=== PATIENT | female | born 1930 | race Caucasian/White ===

== ENCOUNTER 2021-12-13 13:49 | Inpatient (IN) ==
[2021-12-13] MEDS ORDERED: Perflutren Lipid Microsphere 1.3 ML in 0.9 % Sodium Chloride 8.7 ML IVP PRN (16:46)
[2021-12-13] MEDS ORDERED: Naloxone 0.4 MG/ML INJ IVP PRN (16:46)
[2021-12-13] MEDS ORDERED: Nitroglycerin 0.4 MG TAB.SUBL SL PRN (16:46)
[2021-12-13] MEDS ORDERED: Morphine Sulfate 2 MG/ML SYRINGE IVP PRN (16:46)
[2021-12-13] MEDS ORDERED: Acetaminophen 325 MG TABLET PO PRN (16:46)
[2021-12-13] MEDS ORDERED: *HR* Heparin 5,000 UNIT/ML VIAL IVP PRN (17:22)
[2021-12-13] MEDS ORDERED: *HR* Heparin 5,000 UNIT/ML VIAL IVP ONE (17:22)
[2021-12-13 18:01] LABS: Hematocrit 31.1 % (35.3-44.9); Hemoglobin 10.1 g/dL (11.5-15.4); Immature Platelets 13.3 % (1.1-6.1); Mean Corpuscular HGB Conc 32.5 g/dL (31.6-35.5); Mean Corpuscular Hemoglobin 32.4 pg (28.0-33.3); Mean Corpuscular Volume 99.7 fL (83.0-100.0); Mean Platelet Volume 12.7 fL (9.4-12.4); Red Blood Count 3.12 M/mcL (3.82-4.97); Red Cell Distribution Width 20.2 % (11.5-14.5)
[2021-12-13 18:06] LABS: White Blood Count 55.8 K/mcL (4.3-11.1)
[2021-12-13 18:07] LABS: Heparin anti-factor XA UFH < 0.04 IU/mL (0.30-0.70); INR 1.6; Prothrombin Time 17.6 Seconds (9.4-12.1)
[2021-12-13] MEDS: Doxycycline 100 MG in 0.9 % Sodium Chloride Mini Bag 100 ML IVPB SCH (18:07)
[2021-12-13] MEDS: Heparin 25,000UNIT/250ML 1/2NS 25,000 UNIT/250 ML IV.SOLN IVC SCH (18:08)
[2021-12-13] MEDS: cefTRIAXone 1,000 MG in 0.9 % Sodium Chloride 10 ML IVP SCH (18:11)
[2021-12-13 18:19] LABS: ABG Base Excess -3 mEq/L (-2 to 3); ABG HCO3 21 mEq/L (21-27); ABG Oxygen Saturation 95 % (95-98); ABG PCO2 31 mmHg (35-45); ABG PH 7.43 pH Units (7.32-7.45); ABG PO2 70 mmHg (85-104); ABG TCO2 22 mEq/L (20-26)
[2021-12-13 19:40] LABS: Influenza A PCR Negative (Negative); Influenza B PCR Negative (Negative); Resp. Syncytial Virus PCR Negative (Negative)
[2021-12-13 19:41] LABS: SARS-CoV-2 by PCR (In House) Negative (Negative)
[2021-12-14 01:37] LABS: Calcium 8.6 mg/dL (8.6-10.3); Potassium 4.4 mEq/L (3.5-5.1)
[2021-12-14 01:49] LABS: Troponin I 11.83 ng/mL (< 0.04)
[2021-12-14 02:27] LABS: Basophils % 0.3 %; Hemoglobin 10.3 g/dL (11.5-15.4); Immature Granulocytes % 2.8 % (0-4); Mean Corpuscular Hemoglobin 32.9 pg (28.0-33.3); Nucleated Red Blood Cells 0.2 /100 WBC (0); Red Blood Count 3.13 M/mcL (3.82-4.97); Red Cell Distribution Width 20.5 % (11.5-14.5)
[2021-12-14 02:29] LABS: Basophils # 0.1 K/mcL (0.0-0.2); Hematocrit 31.2 % (35.3-44.9); Immature Platelets 13.1 % (1.1-6.1); Lymphocytes # 1.5 K/mcL (0.6-4.6); Lymphocytes % 3.1 %; Mean Corpuscular Volume 99.7 fL (83.0-100.0); Mean Platelet Volume 13.4 fL (9.4-12.4); Monocytes # 3.9 K/mcL (0.0-1.3); Monocytes % 8.1 %; Neutrophils # 41.2 K/mcL (1.6-8.9); Platelet Count 125 K/mcL (140-400); Segmented Neutrophils % 85.7 %
[2021-12-14 03:05] LABS: Bacteria,Urine Moderate per hpf (None-Few); Bilirubin,Urine Negative (Negative); Blood,Urine Negative (Negative); Clarity,Urine Clear (Clear); Color,Urine Yellow (Yellow); Glucose,Urine (UA) Normal (Normal); Hyaline Casts,Urine Many per lpf (None Seen); Ketones,Urine Negative (Negative); Leukocyte Esterase,Urine Negative (Negative); Mucus,Urine Few per lpf (None-Few); Nitrite,Urine Negative (Negative); PH,Urine 5.5 pH Units (5.0-8.0); Protein,Urine 30 mg/dL (Neg-Trace); RBC,Urine 0-3 per hpf (0-3); Specific Gravity,Urine 1.018 (1.010-1.025); Squamous Epithelial Cell,Urine Few per hpf (None-Few); Urobilinogen,Urine Normal (Normal)
[2021-12-14 03:08] LABS: White Blood Count 48.1 K/mcL (4.3-11.1)
[2021-12-14 03:09] LABS: Anisocytosis 2+ (Not Present); Platelet Estimate Slight Decrease (Normal); Poikilocytosis 1+ (Not Present); Tear Drop Cells 1+ (Not Present)
[2021-12-14 03:10] LABS: Ovalocytes 1+ (Not Present)
[2021-12-14 03:19] LABS: Estimated Average Glucose 148 mg/dl; Hemoglobin A1C 6.8 %
[2021-12-14] MEDS: Doxycycline 100 MG in 0.9 % Sodium Chloride Mini Bag 100 ML IVPB SCH ×2 (05:25→16:39)
[2021-12-14] MEDS: DilTIAZem CD (24hr) 180 MG CAP.ER.24H PO SCH (10:30)
[2021-12-14] MEDS: Aspirin Enteric Coated 81 MG Tablet PO SCH (10:31)
[2021-12-14] MEDS: cefTRIAXone 1,000 MG in 0.9 % Sodium Chloride 10 ML IVP SCH (10:31)
[2021-12-14] MEDS: Ondansetron 4 MG/2 ML VIAL IVP PRN ×2 (10:53→21:27)
[2021-12-14] MEDS: *HR* Heparin 5,000 UNIT/ML VIAL IVP PRN ×2 (12:36→21:15)
[2021-12-14 16:36] LABS: Chol/HDL Ratio 3.5 (0-4.9); Magnesium 2.7 mg/dL (1.6-2.6)
[2021-12-14 16:50] LABS: Thyroid Stimulating Hormone 0.483 mcIU/mL (0.340-5.600)
[2021-12-14 16:51] LABS: Thyroid Stimulating Hormone 0.501 mcIU/mL (0.340-5.600)
[2021-12-14] MEDS: Heparin 25,000UNIT/250ML 1/2NS 25,000 UNIT/250 ML IV.SOLN IVC SCH (17:14)
[2021-12-15] MEDS: Albumin 25% 25gram/100mL 25 GM/100 ML IV.SOLN IVPB SCH ×3 (00:43→16:16)
[2021-12-15] MEDS: Doxycycline 100 MG in 0.9 % Sodium Chloride Mini Bag 100 ML IVPB SCH ×2 (07:07→17:56)
[2021-12-15] MEDS: Aspirin Enteric Coated 81 MG Tablet PO SCH (09:47)
[2021-12-15] MEDS: DilTIAZem CD (24hr) 180 MG CAP.ER.24H PO SCH (09:48)
[2021-12-15] MEDS: cefTRIAXone 1,000 MG in 0.9 % Sodium Chloride 10 ML IVP SCH (09:48)
[2021-12-15 10:49] LABS: Hematocrit 28.1 % (35.3-44.9); Hemoglobin 9.1 g/dL (11.5-15.4); Mean Corpuscular HGB Conc 32.4 g/dL (31.6-35.5); Mean Corpuscular Hemoglobin 32.5 pg (28.0-33.3); Mean Corpuscular Volume 100.4 fL (83.0-100.0); Mean Platelet Volume 12.8 fL (9.4-12.4); Nucleated Red Blood Cells 0.7 /100 WBC (0); Platelet Count 164 K/mcL (140-400); Red Cell Distribution Width 20.5 % (11.5-14.5)
[2021-12-15 10:50] LABS: White Blood Count 15.3 K/mcL (4.3-11.1)
[2021-12-15 11:06] LABS: Complement C3 100 mg/dL (87-200)
[2021-12-15 11:08] LABS: Calcium 8.7 mg/dL (8.6-10.3); Magnesium 2.9 mg/dL (1.6-2.6); Potassium 3.9 mEq/L (3.5-5.1)
[2021-12-15 12:17] LABS: Lymphocytes # 1.5 K/mcL (0.6-4.6); Monocytes # 0.3 K/mcL (0.0-1.3); Neutrophils # 12.9 K/mcL (1.6-8.9); Platelet Estimate Normal (Normal)
[2021-12-15 12:18] LABS: Anisocytosis 1+ (Not Present); Poikilocytosis 1+ (Not Present)
[2021-12-15] MEDS: *HR* Heparin 5,000 UNIT/ML VIAL IVP PRN (12:25)
[2021-12-15] MEDS ORDERED: Heparin 25,000UNIT/250ML 1/2NS 25,000 UNIT/250 ML IV.SOLN IVC SCH (12:30)
[2021-12-15] MEDS ORDERED: *HR* Heparin 5,000 UNIT/ML VIAL IVP PRN ×2 (12:58)
[2021-12-15] MEDS: Ondansetron 4 MG/2 ML VIAL IVP PRN ×2 (14:00→21:50)
[2021-12-15 17:19] LABS: Protein/Creatinine Ratio,Urine 0.78 mg/mg (0.00-0.20); Sodium, Urine 12.1 mEq/L
[2021-12-15] MEDS: *HR* Heparin 5,000 UNIT/ML VIAL SQ SCH (17:55)
[2021-12-16] MEDS: Albumin 25% 25gram/100mL 25 GM/100 ML IV.SOLN IVPB SCH ×4 (00:40→23:53)
[2021-12-16] MEDS: Doxycycline 100 MG in 0.9 % Sodium Chloride Mini Bag 100 ML IVPB SCH ×2 (06:22→18:50)
[2021-12-16] MEDS: *HR* Heparin 5,000 UNIT/ML VIAL SQ SCH ×3 (06:23→21:52)
[2021-12-16] MEDS: Aspirin Enteric Coated 81 MG Tablet PO SCH (10:05)
[2021-12-16] MEDS: DilTIAZem CD (24hr) 180 MG CAP.ER.24H PO SCH (10:05)
[2021-12-16] MEDS: cefTRIAXone 1,000 MG in 0.9 % Sodium Chloride 10 ML IVP SCH (10:07)
[2021-12-16] MEDS: Ondansetron 4 MG/2 ML VIAL IVP PRN (12:01)
[2021-12-16 12:15] LABS: Mean Corpuscular HGB Conc 33.2 g/dL (31.6-35.5); Nucleated Red Blood Cells 2.1 /100 WBC (0)
[2021-12-16 12:17] LABS: Hematocrit 25.9 % (35.3-44.9); Hemoglobin 8.6 g/dL (11.5-15.4); Immature Platelets 15.7 % (1.1-6.1); Mean Corpuscular Hemoglobin 32.7 pg (28.0-33.3); Mean Corpuscular Volume 98.5 fL (83.0-100.0); Platelet Count 121 K/mcL (140-400); Red Blood Count 2.63 M/mcL (3.82-4.97); Red Cell Distribution Width 20.2 % (11.5-14.5); White Blood Count 12.3 K/mcL (4.3-11.1)
[2021-12-16 12:36] LABS: Albumin 4.6 g/dL (3.5-5.7); Albumin/Globulin Ratio 3.1 (1.1-2.2); Bilirubin,Total 1.1 mg/dL (0.3-1.0); Calcium 8.2 mg/dL (8.6-10.3); Globulin 1.5 g/dL (2.4-3.5); Potassium 3.6 mEq/L (3.5-5.1); Total Protein 6.1 g/dL (6.4-8.9)
[2021-12-16 13:00] LABS: Monocytes # 2.1 K/mcL (0.0-1.3); Neutrophils # 7.5 K/mcL (1.6-8.9)
[2021-12-16 13:01] LABS: Anisocytosis 2+ (Not Present); Ovalocytes 1+ (Not Present); Platelet Estimate Slight Decrease (Normal); Toxic Vacuolation Present (Not Present)
[2021-12-16 13:02] LABS: Acanthocytes 1+ (Not Present)
[2021-12-16] MEDS ORDERED: Ipratropium/Albuterol Neb 3 ML IH PRN (15:44)
[2021-12-16] MEDS: predniSONE 5 MG TABLET PO SCH (16:05)
[2021-12-16 17:47] LABS: Procalcitonin 2.18 ng/mL (0.00-0.15)
[2021-12-16] MEDS: Ipratropium/Albuterol Neb 3 ML IH SCH ×2 (18:16→21:10)
[2021-12-17] MEDS: Ipratropium/Albuterol Neb 3 ML IH SCH ×4 (04:28→22:08)
[2021-12-17] MEDS: Doxycycline 100 MG in 0.9 % Sodium Chloride Mini Bag 100 ML IVPB SCH ×2 (05:35→18:18)
[2021-12-17 06:16] LABS: Hematocrit 27.2 % (35.3-44.9); Mean Corpuscular HGB Conc 33.1 g/dL (31.6-35.5); Mean Corpuscular Hemoglobin 32.3 pg (28.0-33.3); Mean Corpuscular Volume 97.5 fL (83.0-100.0); Nucleated Red Blood Cells 2.3 /100 WBC (0); Red Blood Count 2.79 M/mcL (3.82-4.97); Red Cell Distribution Width 20.4 % (11.5-14.5); White Blood Count 17.9 K/mcL (4.3-11.1)
[2021-12-17 06:29] LABS: Platelet Count 99 K/mcL (140-400)
[2021-12-17 06:40] LABS: Ovalocytes 1+ (Not Present)
[2021-12-17 06:41] LABS: Anisocytosis 2+ (Not Present); Basophils # 0.4 K/mcL (0.0-0.2); Lymphocytes # 4.3 K/mcL (0.6-4.6); Monocytes # 2.2 K/mcL (0.0-1.3); Neutrophils # 10.7 K/mcL (1.6-8.9); Platelet Estimate Slight Decrease (Normal); Poikilocytosis 1+ (Not Present)
[2021-12-17 06:58] LABS: % Iron Saturation 80 % (15-50); Ferritin > 1500 ng/mL (10-120); Iron 122 mcg/dL (50-170); Transferrin 109 mg/dL (203-362)
[2021-12-17] MEDS: Aspirin Enteric Coated 81 MG Tablet PO SCH (08:32)
[2021-12-17] MEDS: predniSONE 5 MG TABLET PO SCH (08:32)
[2021-12-17] MEDS: Ondansetron 4 MG/2 ML VIAL IVP PRN ×2 (08:32→18:18)
[2021-12-17] MEDS: Albumin 25% 25gram/100mL 25 GM/100 ML IV.SOLN IVPB SCH ×2 (08:33→18:18)
[2021-12-17] MEDS: cefTRIAXone 1,000 MG in 0.9 % Sodium Chloride 10 ML IVP SCH (08:33)
[2021-12-17 11:54] LABS: Folate 11.8 ng/mL (3.0-16.0)
[2021-12-17 12:05] LABS: Vitamin B12 > 1500 pg/mL (250-1100)
[2021-12-17 15:32] LABS: Alanine Aminotransferase 1142 Units/L (7-52); Albumin 4.8 g/dL (3.5-5.7); Albumin/Globulin Ratio 3.7 (1.1-2.2); Alkaline Phosphatase 55 Units/L (34-104); Aspartate Amino Transferase 1558 Units/L (13-39); BUN/Creatinine Ratio 47 (6-26); Bilirubin,Total 1.6 mg/dL (0.3-1.0); Blood Urea Nitrogen 56 mg/dL (8-23); Calcium 8.7 mg/dL (8.6-10.3); Carbon Dioxide 19 mEq/L (23-29); Chloride 101 mEq/L (98-107); Globulin 1.3 g/dL (2.4-3.5); Glucose 110 mg/dL (70-105); Osmolality,Calculated 290 (280-300); Potassium 4.2 mEq/L (3.5-5.1); Sodium 132 mEq/L (136-145); Total Protein 6.1 g/dL (6.4-8.9); eGFR For African Americans 52 (> 60); eGFR For Non-African Americans 43 (> 60)
[2021-12-17 21:19] LABS: INR 2.3; Prothrombin Time 25.4 Seconds (9.4-12.1)
[2021-12-17] MEDS ORDERED: *HR* Promethazine 25 MG/ML VIAL IM ONE (22:33)
[2021-12-18] MEDS: Albumin 25% 25gram/100mL 25 GM/100 ML IV.SOLN IVPB SCH (00:22)
[2021-12-18] MEDS: Ipratropium/Albuterol Neb 3 ML IH SCH ×4 (04:13→22:18)
[2021-12-18] MEDS: Doxycycline 100 MG in 0.9 % Sodium Chloride Mini Bag 100 ML IVPB SCH (05:32)
[2021-12-18 07:15] LABS: Hemoglobin 8.6 g/dL (11.5-15.4); Mean Corpuscular Volume 99.6 fL (83.0-100.0); Red Cell Distribution Width 20.4 % (11.5-14.5)
[2021-12-18 07:17] LABS: Hematocrit 26.4 % (35.3-44.9); Immature Platelets 22.5 % (1.1-6.1); Mean Corpuscular HGB Conc 32.6 g/dL (31.6-35.5); Mean Corpuscular Hemoglobin 32.5 pg (28.0-33.3); Nucleated Red Blood Cells 1.7 /100 WBC (0); Red Blood Count 2.65 M/mcL (3.82-4.97); White Blood Count 25.5 K/mcL (4.3-11.1)
[2021-12-18 07:22] LABS: Platelet Count 84 K/mcL (140-400)
[2021-12-18 07:59] LABS: Hepatitis B Surface Antigen Nonreactive (Nonreactive)
[2021-12-18 08:05] LABS: Albumin 5.4 g/dL (3.5-5.7); Albumin/Globulin Ratio 4.9 (1.1-2.2); Bilirubin,Total 2.1 mg/dL (0.3-1.0); Calcium 9.3 mg/dL (8.6-10.3); Globulin 1.1 g/dL (2.4-3.5); Total Protein 6.5 g/dL (6.4-8.9)
[2021-12-18] MEDS: Sennosides/Docusate Sodium TABLET PO SCH ×2 (08:24→20:21)
[2021-12-18] MEDS: cefTRIAXone 1,000 MG in 0.9 % Sodium Chloride 10 ML IVP SCH (08:24)
[2021-12-18] MEDS: polyethylene glycoL 3350 17 GM POWD.PACK PO SCH (08:24)
[2021-12-18 08:27] LABS: Hepatitis B Core IgM Nonreactive (Nonreactive)
[2021-12-18] MEDS: predniSONE 5 MG TABLET PO SCH (08:28)
[2021-12-18] MEDS: Aspirin Enteric Coated 81 MG Tablet PO SCH (08:28)
[2021-12-18 08:29] LABS: Hepatitis A Antibody IgM Nonreactive (Nonreactive); Hepatitis C Virus Antibody Nonreactive (Nonreactive)
[2021-12-18] MEDS ORDERED: D5 IVC ONE ×3 (08:47→14:30)
[2021-12-18] MEDS ORDERED: WATER IVC ONE ×3 (08:47→14:30)
[2021-12-18] MEDS ORDERED: ACETYLCYSTEINE IVC ONE ×3 (08:47→14:30)
[2021-12-18 08:53] LABS: Lymphocytes # 2.6 K/mcL (0.6-4.6); Monocytes # 4.6 K/mcL (0.0-1.3); Neutrophils # 14.8 K/mcL (1.6-8.9); Platelet Estimate Decreased (Normal)
[2021-12-18 09:08] LABS: INR 2.9; Prothrombin Time 32.4 Seconds (9.4-12.1)
[2021-12-18 09:38] LABS: Kappa Qnt Free Light Chains 23.54 mg/L (3.30-19.40); Lambda Qnt Free Light Chains 24.26 mg/L (5.71-26.30)
[2021-12-18 09:41] LABS: Serine Protease-3 Antibody 0 AU/mL (0-19)
[2021-12-18 09:42] LABS: ANA IgG by ELISA NONE DETECTED (None Detected)
[2021-12-18] MEDS: Ondansetron 4 MG/2 ML VIAL IVP PRN ×2 (15:23→22:32)
[2021-12-19] MEDS: Ipratropium/Albuterol Neb 3 ML IH SCH ×4 (03:23→22:45)
[2021-12-19 04:42] LABS: Nucleated Red Blood Cells 0.6 /100 WBC (0)
[2021-12-19 04:44] LABS: Hematocrit 24.6 % (35.3-44.9); Hemoglobin 8.2 g/dL (11.5-15.4); Immature Platelets 21.1 % (1.1-6.1); Mean Corpuscular HGB Conc 33.3 g/dL (31.6-35.5); Mean Corpuscular Hemoglobin 32.3 pg (28.0-33.3); Mean Corpuscular Volume 96.9 fL (83.0-100.0); Red Blood Count 2.54 M/mcL (3.82-4.97); Red Cell Distribution Width 20.2 % (11.5-14.5); White Blood Count 17.1 K/mcL (4.3-11.1)
[2021-12-19 04:46] LABS: INR 2.9; Prothrombin Time 32.2 Seconds (9.4-12.1)
[2021-12-19 05:08] LABS: Platelet Count 78 K/mcL (140-400)
[2021-12-19 05:21] LABS: Albumin 4.7 g/dL (3.5-5.7); Albumin/Globulin Ratio 3.9 (1.1-2.2); Bilirubin,Direct 0.8 mg/dL (0.0-0.2); Bilirubin,Total 1.8 mg/dL (0.3-1.0); Calcium 9.2 mg/dL (8.6-10.3); Globulin 1.2 g/dL (2.4-3.5); Potassium 3.3 mEq/L (3.5-5.1); Total Protein 5.9 g/dL (6.4-8.9)
[2021-12-19 06:13] LABS: Hypochromasia Present (Not Present); Lymphocytes # 2.4 K/mcL (0.6-4.6); Monocytes # 1.4 K/mcL (0.0-1.3); Neutrophils # 11.3 K/mcL (1.6-8.9); Platelet Estimate Decreased (Normal)
[2021-12-19] MEDS: Sennosides/Docusate Sodium TABLET PO SCH ×2 (08:32→20:54)
[2021-12-19] MEDS: polyethylene glycoL 3350 17 GM POWD.PACK PO SCH (08:33)
[2021-12-19] MEDS: Aspirin Enteric Coated 81 MG Tablet PO SCH (08:33)
[2021-12-19] MEDS: predniSONE 5 MG TABLET PO SCH (08:33)
[2021-12-19 08:40] LABS: Alpha 2 Globulin (PEP) 0.77 g/dL (0.48-1.05); Beta Globulin (PEP) 0.49 g/dL (0.48-1.10)
[2021-12-19] MEDS: Ondansetron 4 MG/2 ML VIAL IVP PRN (08:48)
[2021-12-19 10:31] LABS: IFE Reflexed IFE Done; Immunoglobulin A 111 mg/dL (68-408); Immunoglobulin G 366 mg/dL (768-1632); Immunoglobulin M 99 mg/dL (35-263)
[2021-12-19] MEDS ORDERED: ACETYLCYSTEINE IVC ONE (11:29)
[2021-12-19] MEDS ORDERED: D5 IVC ONE (11:29)
[2021-12-19] MEDS ORDERED: WATER IVC ONE (11:29)
[2021-12-19] MEDS ORDERED: Prochlorperazine 10 MG/2 ML VIAL IVP PRN (14:27)
[2021-12-20 01:59] LABS: Red Blood Count 2.63 M/mcL (3.82-4.97)
[2021-12-20 02:01] LABS: Hematocrit 25.6 % (35.3-44.9); Hemoglobin 8.5 g/dL (11.5-15.4); Immature Platelets 20.5 % (1.1-6.1); Mean Corpuscular HGB Conc 33.2 g/dL (31.6-35.5); Mean Corpuscular Hemoglobin 32.3 pg (28.0-33.3); Mean Corpuscular Volume 97.3 fL (83.0-100.0); Red Cell Distribution Width 20.4 % (11.5-14.5); White Blood Count 12.6 K/mcL (4.3-11.1)
[2021-12-20 02:06] LABS: Platelet Count 85 K/mcL (140-400)
[2021-12-20 02:07] LABS: INR 2.2; Prothrombin Time 24.6 Seconds (9.4-12.1)
[2021-12-20 03:01] LABS: Alanine Aminotransferase 1134 Units/L (7-52); Albumin 4.5 g/dL (3.5-5.7); Alkaline Phosphatase 61 Units/L (34-104); Aspartate Amino Transferase 649 Units/L (13-39); BUN/Creatinine Ratio 63 (6-26); Bilirubin,Direct 0.6 mg/dL (0.0-0.2); Bilirubin,Total 1.6 mg/dL (0.3-1.0); Blood Urea Nitrogen 60 mg/dL (8-23); Calcium 9.1 mg/dL (8.6-10.3); Carbon Dioxide 21 mEq/L (23-29); Chloride 100 mEq/L (98-107); Globulin 1.5 g/dL (2.4-3.5); Glucose 197 mg/dL (70-105); Osmolality,Calculated 300 (280-300); Potassium 2.9 mEq/L (3.5-5.1); Sodium 134 mEq/L (136-145); eGFR For African Americans > 60 (> 60); eGFR For Non-African Americans 55 (> 60)
[2021-12-20] MEDS: Ipratropium/Albuterol Neb 3 ML IH SCH ×4 (03:53→22:14)
[2021-12-20] MEDS: Sennosides/Docusate Sodium TABLET PO SCH ×2 (08:21→20:38)
[2021-12-20] MEDS: predniSONE 5 MG TABLET PO SCH (08:21)
[2021-12-20] MEDS: Aspirin Enteric Coated 81 MG Tablet PO SCH (08:21)
[2021-12-20] MEDS: polyethylene glycoL 3350 17 GM POWD.PACK PO SCH (08:22)
[2021-12-20] MEDS: Ondansetron 4 MG/2 ML VIAL IVP PRN ×2 (11:30→20:20)
[2021-12-20] MEDS ORDERED: Vancomycin 1,250 MG/262.5 ML IV.SOLN IVPB SCH (18:00)
[2021-12-20] MEDS: Vancomycin 1,250 MG/262.5 ML IV.SOLN IVPB SCH (18:29)
[2021-12-21] MEDS: Ipratropium/Albuterol Neb 3 ML IH SCH ×4 (04:45→21:53)
[2021-12-21 06:23] LABS: Platelet Count 103 K/mcL (140-400)
[2021-12-21 06:25] LABS: Hematocrit 25.3 % (35.3-44.9); Hemoglobin 8.2 g/dL (11.5-15.4); Immature Platelets 14.2 % (1.1-6.1); Mean Corpuscular HGB Conc 32.4 g/dL (31.6-35.5); Mean Corpuscular Hemoglobin 31.7 pg (28.0-33.3); Mean Corpuscular Volume 97.7 fL (83.0-100.0); Nucleated Red Blood Cells 0.2 /100 WBC (0); Red Blood Count 2.59 M/mcL (3.82-4.97); Red Cell Distribution Width 20.7 % (11.5-14.5); White Blood Count 11.2 K/mcL (4.3-11.1)
[2021-12-21 06:57] LABS: Alanine Aminotransferase 738 Units/L (7-52); Albumin 4.6 g/dL (3.5-5.7); Albumin/Globulin Ratio 3.8 (1.1-2.2); Alkaline Phosphatase 69 Units/L (34-104); Aspartate Amino Transferase 281 Units/L (13-39); BUN/Creatinine Ratio 63 (6-26); Blood Urea Nitrogen 50 mg/dL (8-23); Calcium 9.7 mg/dL (8.6-10.3); Carbon Dioxide 24 mEq/L (23-29); Chloride 105 mEq/L (98-107); Globulin 1.2 g/dL (2.4-3.5); Glucose 150 mg/dL (70-105); Lymphocytes # 2.5 K/mcL (0.6-4.6); Magnesium 2.6 mg/dL (1.6-2.6); Monocytes # 0.5 K/mcL (0.0-1.3); Neutrophils # 7.8 K/mcL (1.6-8.9); Osmolality,Calculated 302 (280-300); Phosphorous 2.8 mg/dL (2.7-4.5); Platelet Estimate Slight Decrease (Normal); Potassium 3.3 mEq/L (3.5-5.1); Sodium 138 mEq/L (136-145); Total Protein 5.8 g/dL (6.4-8.9); eGFR For African Americans > 60 (> 60); eGFR For Non-African Americans > 60 (> 60)
[2021-12-21] MEDS ORDERED: Potassium Chloride Elixir 20 MEQ/15 ML UDC PO ONE ×2 (08:36→11:37)
[2021-12-21] MEDS: Aspirin Enteric Coated 81 MG Tablet PO SCH (09:06)
[2021-12-21] MEDS: Sennosides/Docusate Sodium TABLET PO SCH ×2 (09:06→20:11)
[2021-12-21] MEDS: predniSONE 5 MG TABLET PO SCH (09:06)
[2021-12-21] MEDS: polyethylene glycoL 3350 17 GM POWD.PACK PO SCH (09:06)
[2021-12-21] MEDS: Vancomycin 1,250 MG/262.5 ML IV.SOLN IVPB SCH (17:40)
[2021-12-22] MEDS: Ipratropium/Albuterol Neb 3 ML IH SCH ×4 (04:10→20:53)
[2021-12-22] MEDS: predniSONE 5 MG TABLET PO SCH (09:02)
[2021-12-22] MEDS: Aspirin Enteric Coated 81 MG Tablet PO SCH (09:02)
[2021-12-22] MEDS: Sennosides/Docusate Sodium TABLET PO SCH ×2 (09:02→20:33)
[2021-12-22] MEDS: polyethylene glycoL 3350 17 GM POWD.PACK PO SCH (09:02)
[2021-12-22] MEDS ORDERED: *HR* HYDROcodone/Acet 5/325 mg TABLET PO PRN (16:25)
[2021-12-22] MEDS: Vancomycin 1,250 MG/262.5 ML IV.SOLN IVPB SCH (17:49)
[2021-12-23] MEDS: Ipratropium/Albuterol Neb 3 ML IH SCH (04:27)
[2021-12-23 06:52] VITALS: BP 157/51; PULSE 75; TEMP 97.6; O2SAT 93
[2021-12-23] MEDS: polyethylene glycoL 3350 17 GM POWD.PACK PO SCH (09:45)
[2021-12-23] MEDS: Sennosides/Docusate Sodium TABLET PO SCH (09:45)
[2021-12-23] MEDS: Aspirin Enteric Coated 81 MG Tablet PO SCH (09:46)
[2021-12-23] MEDS: predniSONE 5 MG TABLET PO SCH (09:46)
== END 2021-12-23 12:20 | disposition home health service (06) | DRG 871 ==
LOC: 2NENU → SUATTDRO 15:01
PROVIDERS: ADMIT Pharmacist; ATTEND Family Medicine